=== PATIENT | male | born 1970 | race Caucasian/White ===

== ENCOUNTER 2019-12-30 03:13 | Outpatient (CLI) | payer BC, SELFPAY ==
[2020-01-01 12:25] LABS: COVID-19 RT-PCR Result NEGATIVE (Negative)
== END 2019-12-30 03:33 ==
PROVIDERS: PCP Family Medicine; Visit Provider Student in an Organized Health Care Education/Training Program
DX: Z11.59 Encounter for screening for other viral diseases (principal); Z01.818 Encounter for other preprocedural examination
CPT/HCPCS: U0003

== ENCOUNTER 2020-01-03 08:39 | Day surgery (SDC) | payer BC, SELFPAY ==
[2020-01-03 08:45] VITALS: BP 122/78; PULSE 57; RESP 17; TEMP 36.2; O2SAT 97
--- NOTE | 2020-01-03 08:59 | PDOC.DSDIS_ITS ---
Discharge Plan Disposition Patient Disposition: HOME Condition: Good Discharge Details Reason For Visit: Cubital Tunnel Release Left Attending Provider: Pollo Sanchez Primary Care Provider: Kavitha Donovan Home Meds and New Rx's Prescriptions: New hydrocodone-acetaminophen 5-325 mg tablet 1 tab PO Q6H PRN (Reason: pain) Qty: 6 RF: 0 ibuprofen 600 mg tablet 600 mg PO TID PRN (Reason: pain) Qty: 30 RF: 0 acetaminophen 500 mg capsule 500 mg PO Q4H PRN (Reason: pain) Qty: 30 RF: 0 Discharge Instructions Additional Instructions: Cubital Tunnel Decompression Discharge Instructions Activity: You should stay in the sling for the first 2 weeks. You may come out of the sling for gentle motion and hygiene but should largely remain in the sling to allow the incision site to heal. Gentle motion of the elbow, hand, wrist, and fingers is okay and encouraged after the first few days, but no repetitive activites nor heavy lifting. You may apply ice. Medications: - You should take Tylenol and Ibuprofen around the clock. - You have been prescribed Hydrocodone for breakthrough pain. Dressings: - The initial surgical dressing should stay in place for 3 days. It may then be removed and kept clean and dry. You should cover with a light gauze dressing. - You may shower after 3 days and get the wound wet. Follow-up: 10 days Referrals: Pollo Sanchez MD [ [facility] STAFF PHYSICIAN] - Equipment/Supplies: Sling Activity:: Elevate Remove Dressings/Wound Care:: 72 hours Shower/Bathe:: 72 hours Diet:: As Tolerated Discharge Orders Discharge Orders: Discharge Order (Routine); Ordered 01/03/20 Ordered By: Bao Gooden DS: Diagnosis Discharge Diagnosis (1) Cubital tunnel syndrome on left: Status: Acute
[2020-01-03] MEDS: Lactated Ringers 1,000 ML 80 ML IV (09:05)
[2020-01-03] MEDS: ceFAZolin 2 GM/50 ML BAG IVPB (10:48)
[2020-01-03 12:04] VITALS: BP 97/58; PULSE 60; RESP 21; TEMP 36.3; O2SAT 98
[2020-01-03 12:09] VITALS: BP 97/47; PULSE 59; RESP 18; TEMP 36.3; O2SAT 99
[2020-01-03 12:14] VITALS: BP 99/59; PULSE 60; RESP 17; TEMP 36.3; O2SAT 98
[2020-01-03 12:29] VITALS: BP 104/62; PULSE 68; RESP 12; TEMP 36.3; O2SAT 97
--- NOTE | 2020-01-03 12:46 | W.PM.OP ---
Date of service: 01/03/20 Time of Service: 12:01 Operative Note Operative Note DATE OF PROCEDURE: 01/03/20 PRE-OP DIAGNOSIS: Left Cubital Tunnel Syndrome POST-OP DIAGNOSIS: same PROCEDURE: Left Cubital Tunnel Decompression with Anterior Subcutaneous Transposition SURGEON: Pollo Sanchez ELECTRONIC CALIBRATION TECHNICIAN: Bao Gooden ANESTHESIA: MICKEY ESTIMATED BLOOD LOSS: 0 PATHOLOGY: none sent TOURNIQUET TIME: 27 COMPLICATIONS: None Patient was transported to: PACU Patient's condition: stable Indications: Frederic is a 49 year old male who has had symptoms of cubital tunnel syndrome. Nonoperative treatment options had been trialed. Nerve conduction studies identified the cubital tunnel as the point of compression. Given failure of nonoperative treatments and persistent symptoms, I offered operative intervention. I reviewed the technical details of a cubital tunnel decompression with possible anterior subcutaneous transposition. I reviewed the risk of the procedure to include bleeding, infection, pain, stiffness, tendon instability, damage to the superficial radial nerve, and complete release. Despite these risks, the patient elected to proceed. Findings: There was a tightened cubital tunnel. This was most notable at the tunnel and into the FCU muscle. The ulnar nerve was release from the first motor branch distally through the [place] proximally. The nerve wanted to sublux after decompression and was therefore transposed anteriorly. Procedure Description: Frederic was greeted in the preoperative holding area. Name and surgical site were confirmed. The history and physical was completed. The consent was reviewed the patient and signed. Frederic was taken back to the operating room. The patient was placed in the supine positioned and a general anesthetic was administered. The left was then prepped with ChloraPrep and draped in a standard fashion after a nonsterile tourniquet was placed high up into the axilla of the arm. Prophylactic antibiotics in the form of cefazolin were administered. A timeout was performed for safe surgery. The surgical site was drawn on the skin as was the lateral epicondyle borders. The planned surgical field was anesthetized with 0.25% bupivacaine with epinephrine. The limb was exsanguinated and the tourniquet was inflated where it stayed for 27. A 6 cm incision was made curvilinearly around the medial elbow. The skin was incised only. The deep tissue and subcutaneous fat was dissected with a tenotomy scissors trying to protect any branches of the medial antebrachial cutaneous nerve. Any branches that were identified were retracted out of the way. The ulnar nerve was palpated and identified. A small window into the cubital tunnel, sheath overlying the nerve, was created and the nerve was able to be palpated with the [place]. A Metzenbaum scissor was then used to open up the sheath starting with Malone's ligament. I then worked distal over the ulnar nerve releasing any constraints against the nerve all the way to the fascia of the FCU muscle belly. This muscle belly was bluntly all the way down to the first motor branch of the ulnar nerve and the overlying fascia was incised. Likewise starting there at the lateral epicondyle, I proceeded to work proximally to release any constraints over the ulnar nerve. This was taken all the way to the arc[place] of [place]. The medial intermuscular septum was also palpated and any sharp edges against the ulnar nerve were resected and released. After fully releasing the nerve it was inspected visually. I was also able to palpate the nerve fully and reach one finger up into the proximal and distal aspects to make sure there were no constraints against the nerve. A freer elevator was also used to slide easily against the ulnar nerve without any points of constriction. The arm was then taken through range of motion. The ulnar nerve did sublux/dislocate out of its groove behind the medial epicondyle. Therefore, I proceeded with an anterior transposition. The nerve was gently dissected circumferentially so that is able to be moved anteriorly without any undue tension. There is a single vessel which was dissected to release to go with the nerve anteriorly. A portion of the medial intermuscular septum was also resected so there is no pressure on the nerve as it went from posterior to anterior around the medial condyle. Once this was fully released, a rectangular section of the flexor pronator origin was elevated and a 2 x 1 cm flap. This flap was inserted to the dermis underlying the proximal location of the medial condyle creating a sling to prevent posterior subluxation. The nerves and held in the anterior position and the flap was tied. There is no tension on the ulnar nerve. A [place] was easily able to slide up and down in the anterior pocket. The tourniquet was then deflated. Any areas of bleeding were cauterized with bipolar electrocautery. The wound was thoroughly irrigated. The deep tissue was closed with a 3-0 Vicryl. The skin was closed with a 4-0 nylon. The wound was dressed with Xeroform, 4 x 4's, ABD, Kerlix and an Corey wrap. Frederic was placed into a sling. Frederic was transferred back to the PACU in a stable condition.
[2020-01-03 13:15] VITALS: BP 139/88; PULSE 58; RESP 16; TEMP 35.8; O2SAT 100
== END 2020-01-03 13:48 | disposition home or self-care (01) ==
PROVIDERS: PCP Family Medicine; Visit Provider Student in an Organized Health Care Education/Training Program
PROC: (CPT 64718; principal; 2020-01-03 10:15)
DX: G56.22 Lesion of ulnar nerve, left upper limb (principal)
CPT/HCPCS: 64718; J0690; J1100; J1885; J2001; J2405; L3650